=== PATIENT | male | born 1965 | race African-American/Black ===

== ENCOUNTER 2017-11-11 | Emergency (ER) | payer OTHER, MEDICAID ==
[~2017-11-11] VITALS: Ht 162.6 cm; Wt 83.5 kg
[2017-11-11 00:06] VITALS: BP 147/100
== END 2017-11-11 03:47 | disposition left against medical advice (07) ==
LOC: ER
DX: R07.89 Other chest pain (principal); Z53.21 Procedure and treatment not carried out due to patient leaving prior to being seen by health care provider

== ENCOUNTER 2017-11-11 14:52 | Emergency (ER) | payer OTHER, MEDICAID ==
[~2017-11-11] VITALS: Ht 162.6 cm; Wt 83.9 kg
[2017-11-11 15:52] LABS: Basophils # (auto) 0.1 uL; Basophils % (auto) 0.8 % (0.0-2.0); Eosinophils # (auto) 0.2 uL; Eosinophils % (auto) 3.1 % (0.0-7.0); Hematocrit 43.2 % (41.0-53.0); Hemoglobin 14.2 g/dL (13.5-17.5); Lymphocytes # (auto) 2.1 uL; Lymphocytes % (auto) 30.5 % (10.0-50.0); Mean Corpuscular Hemoglobin 27.9 pg (28.0-32.0); Mean Corpuscular Volume 84.6 fL (80.0-100.0); Monocytes # (auto) 0.8 uL; Monocytes % (auto) 11.4 % (0.0-12.0); Neutrophils # (auto) 3.7 uL; Neutrophils % (auto) 54.2 % (37.0-80.0); Nucleated Red Blood Cells % 0.1 %; Platelet Count (auto) 116 10^3/uL (140-450); Red Cell Distribution Width 13.7 % (11.8-14.3); White Blood Cell 6.8 10^3/uL (4.4-10.8)
[2017-11-11] MEDS ORDERED: ASPirin-EC 81 mg tab PO ONE (16:00)
[2017-11-11 16:16] LABS: Alanine Aminotransferase 33 U/L (16-61); Albumin 3.7 g/dL (3.4-5.0); Alkaline Phosphatase 80 U/L (45-117); Anion Gap 5 (5-15); Aspartate Aminotransferase 31 U/L (15-37); Bilirubin, Total 0.4 mg/dL (0.2-1.0); Blood Urea Nitrogen 10 mg/dL (7-18); Calcium 8.6 mg/dL (8.5-10.1); Carbon Dioxide 28 mmol/L (21-32); Chloride 108 mmol/L (98-107); GFR African American 77 mL/min; GFR Non-African American 64 mL/min; Glucose 100 mg/dL (74-106); Magnesium 2.7 mg/dL (1.6-2.6); Potassium 3.5 mmol/L (3.5-5.1); Sodium 141 mmol/L (136-145); Total Protein 7.2 g/dL (6.4-8.2)
[2017-11-11] MEDS ORDERED: cefTRIAXone SOD 1,000 MG VL IM ONE (18:00)
[2017-11-11] MEDS ORDERED: KETOROLAC TROMETH 60MG/2ML VIAL IM ONE (18:00)
[2017-11-11 19:00] LABS: INR 0.95 (0.9-1.15); Partial Thromboplastin Time 26.8 sec (23.78-33.04); Prothrombin Time 10.2 sec (9.27-12.13)
[2017-11-11 19:45] VITALS: BP 122/89
== END 2017-11-11 20:01 | disposition home or self-care (01) ==
LOC: ER 14:52
DX: J20.9 Acute bronchitis, unspecified (principal); R07.81 Pleurodynia
CPT/HCPCS: 36415; 71046; 80053; 80320; 83735; 84484; 85025; 85379; 85610; 85730; 93005; 96372; 99285; J0696; J1885